=== PATIENT | male | born 1965 | race Caucasian/White ===

== ENCOUNTER 2019-04-27 14:01 | Emergency (ER) | payer BC ==
[2019-04-27] MEDS ORDERED: Lidocaine 1% w/Epinephrine 1:100K 20 ML VIAL ONE (14:38)
[2019-04-27] MEDS ORDERED: Bacitracin 1 PK ONE (15:09)
[2019-04-27] MEDS ORDERED: Adacel (T-DAP) 0.5 ML SYRINGE ONE (15:10)
== END 2019-04-27 15:20 | disposition home or self-care (01) ==
LOC: ERS 14:01
DX: S81.851A Open bite, right lower leg, initial encounter (principal); S81.811A Laceration without foreign body, right lower leg, initial encounter; F17.210 Nicotine dependence, cigarettes, uncomplicated; M06.9 Rheumatoid arthritis, unspecified; W54.0XXA Bitten by dog, initial encounter
CPT/HCPCS: 12002; 90471; 90715